=== PATIENT | male | born 1975 | race Caucasian/White ===

== ENCOUNTER 2019-11-14 08:38 | Outpatient (REF) | payer BC, SELFPAY ==
[2019-11-14 09:39] LABS: MANUAL DIFF FLAG NO
[2019-11-14 09:43] LABS: Basophils Absolute Auto 0.1 X10*3/uL (0.0-0.2); Basophils Percent Auto 1.1 % (0-2); Eosinophils Absolute Auto 0.2 X10*3/uL (0.0-0.4); Eosinophils Percent Auto 2.7 % (0-4); Hematocrit 44.2 % (42-52); Hemoglobin 15.1 g/dl (14.0-18.0); Imm Gran Abs Auto 0.01 X10*3/uL (0.00-0.03); Imm Gran Pct Auto 0.2 % (0.0-0.4); Lymphocytes Absolute Auto 1.7 X10*3/uL (1.2-4.9); Lymphocytes Percent Auto 30.8 % (20-40); Mean Corpuscular HGB Conc 34.2 g/dl (31.0-36.0); Mean Corpuscular Hemoglobin 33.8 pg (27.0-33.0); Mean Corpuscular Volume 98.9 fL (80-98); Mean Platelet Volume 11.1 fL (9.4-12.4); Monocytes Absolute Auto 0.5 X10*3/uL (0.1-1.2); Monocytes Percent Auto 8.1 % (2-11); Neutrophils Absolute Auto 3.2 X10*3/uL (2.0-8.3); Neutrophils Percent Auto 57.1 % (45-73); Platelet Count 211 X10*3/uL (160-400); Red Blood Count 4.47 X10*6/uL (4.60-5.80); Red Cell Distribution Width 11.5 % (11.0-16.0); White Blood Count 5.7 X10*3/uL (4.8-10.8)
[2019-11-14 11:22] LABS: Thyroid Stimulating Hormone 6.33 mIU/mL (0.32-4.0)
[2019-11-14 11:33] LABS: Alanine Aminotransferase 21 U/L (0-40); Albumin Level 4.6 g/dL (3.5-5.0); Alkaline Phosphatase 62 U/L (39-117); Aspartate Amino Transferase 22 U/L (5-37); Bilirubin Total 0.8 mg/dL (0.0-1.0); Blood Urea Nitrogen 14 mg/dL (9-16); Calcium 9.1 mg/dL (8.4-10.2); Cholesterol 171 mg/dL; Estimated Glomerular Filt Rate > 60; Glucose Fasting 98 mg/dL (60-99); HDL Cholesterol 50 mg/dL; LDL Cholesterol Calculated 98 mg/dl; Triglycerides 119 mg/dL
[2019-11-14 11:43] LABS: Anion Gap 11 (12-20); Carbon Dioxide 30 mmol/L (22-29); Chloride 103 mmol/L (96-108); Potassium 4.4 mmol/l (3.3-5.1); Sodium 140 mmol/L (135-145)
== END 2019-11-14 08:39 | disposition home or self-care (01) ==
LOC: HO.10HDL 08:38
PROVIDERS: PCP Internal Medicine; Visit Provider Internal Medicine
DX: E89.0 Postprocedural hypothyroidism (principal); I10 Essential (primary) hypertension; R00.1 Bradycardia, unspecified
CPT/HCPCS: 36415; 80053; 80061; 84443; 85025

== ENCOUNTER 2020-05-28 08:59 | Outpatient (REF) | payer BC, SELFPAY ==
[2020-05-28 10:19] LABS: Thyroid Stimulating Hormone 5.76 uIU/mL (0.32-4.0)
== END 2020-05-28 09:00 | disposition home or self-care (01) ==
LOC: HO.10HDL 08:59
PROVIDERS: Visit Provider Internal Medicine
DX: E89.0 Postprocedural hypothyroidism (principal)
CPT/HCPCS: 36415; 84443

== ENCOUNTER 2021-03-03 08:33 | Outpatient (REF) | payer BC, SELFPAY ==
[2021-03-03 10:35] LABS: MANUAL DIFF FLAG NO
[2021-03-03 10:45] LABS: Basophils Absolute Auto 0.1 X10*3/uL (0.0-0.2); Basophils Percent Auto 1.1 % (0-2); Eosinophils Absolute Auto 0.1 X10*3/uL (0.0-0.4); Eosinophils Percent Auto 2.1 % (0-4); Hematocrit 42.7 % (42.0-52.0); Hemoglobin 14.4 g/dl (14.0-18.0); Imm Gran Abs Auto 0.01 X10*3/uL (0.00-0.03); Imm Gran Pct Auto 0.2 % (0.0-0.4); Lymphocytes Absolute Auto 1.6 X10*3/uL (1.2-4.9); Lymphocytes Percent Auto 34.4 % (20-40); Mean Corpuscular HGB Conc 33.7 g/dl (31.0-36.0); Mean Corpuscular Hemoglobin 33.3 pg (27.0-33.0); Mean Corpuscular Volume 98.6 fL (80.0-98.0); Mean Platelet Volume 12.7 fL (9.4-12.4); Monocytes Absolute Auto 0.4 X10*3/uL (0.1-1.2); Monocytes Percent Auto 8.7 % (2-11); Neutrophils Absolute Auto 2.5 x10*3/uL (2.0-8.3); Neutrophils Percent Auto 53.5 % (45-73); Platelet Count 164 X10*3/uL (160-400); Red Blood Count 4.33 X10*6/uL (4.60-5.80); Red Cell Distribution Width 11.6 % (11.0-16.0); White Blood Count 4.7 X10*3/uL (4.8-10.8)
[2021-03-03 11:20] LABS: Alanine Aminotransferase 12 U/L (0-40); Albumin Level 4.3 g/dL (3.5-5.0); Alkaline Phosphatase 74 U/L (39-117); Anion Gap 12 (12-20); Aspartate Amino Transferase 16 U/L (5-37); Bilirubin Total 1.2 mg/dL (0.0-1.0); Blood Urea Nitrogen 15 mg/dL (9-16); Calcium 9.6 mg/dL (8.4-10.2); Carbon Dioxide 29 mmol/L (22-29); Chloride 105 mmol/L (96-108); Cholesterol 168 mg/dL; Estimated Glomerular Filt Rate > 60; Glucose Fasting 95 mg/dL (60-99); HDL Cholesterol 37 mg/dL; LDL Cholesterol Calculated 110 mg/dl; Potassium 4.4 mmol/L (3.3-5.1); Sodium 142 mmol/L (135-145); Triglycerides 109 mg/dL
[2021-03-03 11:30] LABS: Thyroid Stimulating Hormone 1.15 uIU/mL (0.32-4.0); Vitamin D 25-OH Total 34.7 ng/mL (>30)
== END 2021-03-03 08:34 | disposition home or self-care (01) ==
LOC: HO.10HDL 08:33
PROVIDERS: Visit Provider Internal Medicine
DX: Z00.00 Encounter for general adult medical examination without abnormal findings (principal); E89.0 Postprocedural hypothyroidism
CPT/HCPCS: 36415; 80053; 80061; 82306; 84443; 85025

== ENCOUNTER 2021-09-17 09:33 | Outpatient (REF) | payer BC, SELFPAY ==
[2021-09-17 10:56] LABS: Prostate Specific Antigen 0.46 ng/mL (<0.05-4.0); Thyroid Stimulating Hormone 5.43 uIU/mL (0.32-4.0)
== END 2021-09-17 09:34 | disposition home or self-care (01) ==
LOC: HO.LAB 09:33
PROVIDERS: PCP Internal Medicine; Visit Provider Internal Medicine
DX: Z00.00 Encounter for general adult medical examination without abnormal findings (principal); Z12.5 Encounter for screening for malignant neoplasm of prostate; E89.0 Postprocedural hypothyroidism; Z80.42 Family history of malignant neoplasm of prostate
CPT/HCPCS: 36415; 84153; 84443

== ENCOUNTER 2022-03-04 07:52 | Outpatient (REF) | payer OTHER, SELFPAY ==
[2022-03-04 08:34] LABS: MANUAL DIFF FLAG NO
[2022-03-04 09:19] LABS: Basophils Absolute Auto 0.1 X10*3/uL (0.0-0.2); Basophils Percent Auto 1.5 % (0-2); Eosinophils Absolute Auto 0.1 X10*3/uL (0.0-0.4); Eosinophils Percent Auto 1.3 % (0-4); Hematocrit 45.9 % (42.0-52.0); Hemoglobin 16.2 g/dl (14.0-18.0); Imm Gran Abs Auto 0.01 X10*3/uL (0.00-0.03); Imm Gran Pct Auto 0.2 % (0.0-0.4); Lymphocytes Absolute Auto 1.3 X10*3/uL (1.2-4.9); Lymphocytes Percent Auto 25.5 % (20-40); Mean Corpuscular HGB Conc 35.3 g/dl (31.0-36.0); Mean Corpuscular Hemoglobin 33.1 pg (27.0-33.0); Mean Corpuscular Volume 93.7 fL (80.0-98.0); Mean Platelet Volume 11.5 fL (9.4-12.4); Monocytes Absolute Auto 0.4 X10*3/uL (0.1-1.2); Monocytes Percent Auto 7.7 % (2-11); Neutrophils Absolute Auto 3.3 x10*3/uL (2.0-8.3); Neutrophils Percent Auto 63.8 % (45-73); Platelet Count 235 X10*3/uL (160-400); Red Cell Distribution Width 11.4 % (11.0-16.0); White Blood Count 5.2 X10*3/uL (4.8-10.8)
[2022-03-04 10:00] LABS: Alanine Aminotransferase 12 U/L (0-40); Albumin Level 4.8 g/dL (3.5-5.0); Alkaline Phosphatase 63 U/L (39-117); Anion Gap 18 (12-20); Aspartate Amino Transferase 19 U/L (5-37); Bilirubin Total 1.4 mg/dL (0.0-1.0); Blood Urea Nitrogen 14 mg/dL (9-16); Calcium 9.9 mg/dL (8.4-10.2); Carbon Dioxide 25 mmol/L (22-29); Chloride 99 mmol/L (96-108); Cholesterol 213 mg/dL; Estimated Glomerular Filt Rate > 60; Glucose Fasting 89 mg/dL (60-99); HDL Cholesterol 54 mg/dL; LDL Cholesterol Calculated 144 mg/dl; Potassium 4.5 mmol/L (3.3-5.1); Sodium 137 mmol/L (135-145); Total Protein 7.3 g/dL (6.5-8.0); Triglycerides 76 mg/dL
[2022-03-04 10:08] LABS: Thyroid Stimulating Hormone 2.55 uIU/mL (0.32-4.0)
== END 2022-03-04 07:53 | disposition home or self-care (01) ==
LOC: HO.LAB 07:52
PROVIDERS: PCP Internal Medicine; Visit Provider Internal Medicine
DX: Z00.00 Encounter for general adult medical examination without abnormal findings (principal); E89.0 Postprocedural hypothyroidism
CPT/HCPCS: 36415; 80053; 80061; 82306; 84443; 85025

== ENCOUNTER 2022-09-02 07:38 | Outpatient (REF) | payer OTHER, SELFPAY ==
[2022-09-02 09:03] LABS: Cholesterol 152 mg/dL; HDL Cholesterol 50 mg/dL; LDL Cholesterol Calculated 86 mg/dl; Triglycerides 80 mg/dL
== END 2022-09-02 07:39 | disposition home or self-care (01) ==
LOC: HO.LAB 07:38
PROVIDERS: PCP Internal Medicine; Visit Provider Internal Medicine
DX: Z00.01 Encounter for general adult medical examination with abnormal findings (principal); E89.0 Postprocedural hypothyroidism; E78.00 Pure hypercholesterolemia, unspecified
CPT/HCPCS: 36415; 80061

== ENCOUNTER 2023-06-09 07:27 | Outpatient (REF) | payer OTHER, SELFPAY ==
[2023-06-09 07:50] LABS: MANUAL DIFF FLAG NO
[2023-06-09 07:56] LABS: Basophils Absolute Auto 0.1 X10*3/uL (0.0-0.2); Basophils Percent Auto 1.2 % (0-2); Eosinophils Absolute Auto 0.1 X10*3/uL (0.0-0.4); Eosinophils Percent Auto 2.8 % (0-4); Hemoglobin 14.7 g/dl (14.0-18.0); Imm Gran Abs Auto 0.01 X10*3/uL (0.00-0.03); Imm Gran Pct Auto 0.2 % (0.0-0.4); Lymphocytes Absolute Auto 1.4 X10*3/uL (1.2-4.9); Lymphocytes Percent Auto 32.7 % (20-40); Mean Corpuscular Hemoglobin 33.6 pg (27.0-33.0); Mean Corpuscular Volume 96.1 fL (80.0-98.0); Mean Platelet Volume 10.4 fL (9.4-12.4); Monocytes Absolute Auto 0.4 X10*3/uL (0.1-1.2); Monocytes Percent Auto 8.7 % (2-11); Neutrophils Absolute Auto 2.3 x10*3/uL (2.0-8.3); Neutrophils Percent Auto 54.4 % (45-73); Platelet Count 204 X10*3/uL (160-400); Red Blood Count 4.37 X10*6/uL (4.60-5.80); Red Cell Distribution Width 11.9 % (11.0-16.0); White Blood Count 4.3 X10*3/uL (4.8-10.8)
[2023-06-09 08:27] LABS: Alanine Aminotransferase 27 U/L (0-40); Albumin Level 4.3 g/dL (3.5-5.0); Alkaline Phosphatase 61 U/L (39-117); Anion Gap 10 (12-20); Aspartate Amino Transferase 31 U/L (5-37); Blood Urea Nitrogen 12 mg/dL (9-16); Calcium 9.3 mg/dL (8.4-10.2); Carbon Dioxide 29 mmol/L (22-29); Chloride 104 mmol/L (96-108); Cholesterol 178 mg/dL (<200); Estimated Glomerular Filt Rate > 60; Glucose Fasting 113 mg/dL (60-99); HDL Cholesterol 51 mg/dL (>40); LDL Cholesterol Calculated 109 mg/dL (<100); Potassium 4.4 mmol/L (3.3-5.1); Sodium 139 mmol/L (135-145); Total Protein 6.9 g/dL (6.5-8.0); Triglycerides 92 mg/dL (<150)
[2023-06-09 08:41] LABS: PSA,Total (Free>4and<10) 0.53 ng/mL (0.00-4.00)
[2023-06-09 08:44] LABS: Thyroid Stimulating Hormone 2.56 uIU/mL (0.32-4.0); Vitamin D 25-OH Total 36.7 ng/mL (>30)
== END 2023-06-09 07:28 | disposition home or self-care (01) ==
LOC: HO.LAB 07:27
PROVIDERS: PCP Internal Medicine; Visit Provider Internal Medicine
DX: Z00.00 Encounter for general adult medical examination without abnormal findings (principal); I10 Essential (primary) hypertension; E89.0 Postprocedural hypothyroidism; E78.00 Pure hypercholesterolemia, unspecified; Z12.5 Encounter for screening for malignant neoplasm of prostate
CPT/HCPCS: 36415; 80053; 80061; 82306; 84153; 84443; 85025

== ENCOUNTER 2024-06-14 07:26 | Outpatient (REF) | payer OTHER, SELFPAY ==
[2024-06-14 08:02] LABS: MANUAL DIFF FLAG NO
[2024-06-14 08:22] LABS: Basophils Absolute Auto 0.1 X10*3/uL (0.0-0.2); Eosinophils Absolute Auto 0.1 X10*3/uL (0.0-0.4); Eosinophils Percent Auto 1.4 % (0-4); Hematocrit 43.8 % (42.0-52.0); Hemoglobin 15.3 g/dl (14.0-18.0); Imm Gran Abs Auto 0.02 X10*3/uL (0.00-0.03); Imm Gran Pct Auto 0.4 % (0.0-0.4); Lymphocytes Absolute Auto 1.5 X10*3/uL (1.2-4.9); Lymphocytes Percent Auto 30.2 % (20-40); Mean Corpuscular HGB Conc 34.9 g/dl (31.0-36.0); Mean Corpuscular Hemoglobin 33.6 pg (27.0-33.0); Mean Corpuscular Volume 96.1 fL (80.0-98.0); Mean Platelet Volume 10.9 fL (9.4-12.4); Monocytes Absolute Auto 0.3 X10*3/uL (0.1-1.2); Neutrophils Absolute Auto 2.9 x10*3/uL (2.0-8.3); Platelet Count 234 X10*3/uL (160-400); Red Blood Count 4.56 X10*6/uL (4.60-5.80); Red Cell Distribution Width 11.5 % (11.0-16.0); White Blood Count 4.9 X10*3/uL (4.8-10.8)
[2024-06-14 08:41] LABS: Estimated Average Glucose 100 mg/dL; Hemoglobin A1C 129.5745 umol/L; Hemoglobin A1c % 5.1 % (<6.0); Total Hemoglobin (HGBA1C) 4060.8509 umol/L
[2024-06-14 08:56] LABS: Alanine Aminotransferase 31 U/L (0-40); Albumin Level 4.3 g/dL (3.5-5.0); Alkaline Phosphatase 65 U/L (39-117); Anion Gap 13 (12-20); Aspartate Amino Transferase 35 U/L (5-37); Bilirubin Direct 0.3 mg/dL (0.0-0.5); Bilirubin Total 1.1 mg/dL (0.0-1.0); Blood Urea Nitrogen 19 mg/dL (9-16); C Reactive Protein < 0.04 mg/dL (< or = 0.50); Carbon Dioxide 28 mmol/L (22-29); Chloride 105 mmol/L (96-108); Cholesterol 200 mg/dL (<200); Estimated Glomerular Filt Rate > 60; Glucose Fasting 95 mg/dL (60-99); HDL Cholesterol 56 mg/dL (>40); LDL Cholesterol Calculated 129 mg/dL (<100); Magnesium 1.9 mg/dL (1.6-2.6); Potassium 4.1 mmol/L (3.3-5.1); Sodium 142 mmol/L (135-145); Total Protein 6.9 g/dL (6.5-8.0); Triglycerides 76 mg/dL (<150)
[2024-06-14 09:06] LABS: Erythrocyte Sedimentation Rate 2 MM/HR (0-15)
[2024-06-14 09:08] LABS: PSA,Total (Free>4and<10) 0.72 ng/mL (0.00-4.00)
[2024-06-14 09:22] LABS: Folate 13.5 ng/mL (> or = 4.0); Vitamin B12 497 pg/mL (200-900)
[2024-06-14 09:28] LABS: Vitamin D 25-OH Total 43.3 ng/mL (>30)
[2024-06-14 11:16] LABS: Free T4 (Free Thyroxine) 1.17 ng/dL (0.71-1.85)
== END 2024-06-14 07:27 | disposition home or self-care (01) ==
LOC: HO.LAB 07:26
PROVIDERS: PCP Internal Medicine; Visit Provider Physician Assistant Medical
DX: Z00.00 Encounter for general adult medical examination without abnormal findings (principal); Z12.5 Encounter for screening for malignant neoplasm of prostate; Z13.1 Encounter for screening for diabetes mellitus; Z13.6 Encounter for screening for cardiovascular disorders
CPT/HCPCS: 36415; 80053; 80061; 80076; 82248; 82306; 82607; 82746; 83036; 83735; 84153; 84439; 84443; 85025; 85652; 86140

== ENCOUNTER 2024-07-22 15:39 | Outpatient (AMB) | payer OTHER, SELFPAY ==
--- NOTE | 2024-07-22 15:41 | MHC.PC.OV ---
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 Welfare Required: No Accompanied by: Self / Same As Patient Allergies apremilast [From Otezla] Adverse Reaction (Unknown, Verified 07/22/24 16:21) Diarrhea Medication List - Last Reconciled 07/22/24 by Zenia Berg PA-C calcipotriene-betamethasone 0.005-0.064 % (Enstilar) 1 appl topical DAILY PRN levothyroxine 150 mcg PO DAILY Tobacco use date assessed: 07/22/24 Dental Screening Dental Screen Date: 07/22/24 Did you have a dental visit in the last 12 months?: Yes Did you have a dental problem in the last 6 months where you did not have access to dental care?: No Was dental information given to patient?: Patient has dentist HPI physical HPI Details The patient is a 49-year-old male presenting for an annual physical examination and review of blood work results. The patient has a long-standing history of hypothyroidism, currently taking levothyroxine, but recent TSH levels have reported as elevated at 6.10. He reports being symptomatically stable with his consistent medication regimen. The LDL cholesterol level has worsened, with a recorded total cholesterol of 200 mg/dL. There are no symptomatic cardiac complaints; however, he does have a previously noted heart murmur with mild aortic valve regurgitation last evaluated with an echocardiogram in 2018. The patient denies recent symptoms indicative of prostate health concerns and omits a history or symptoms suggestive of gastrointestinal malignancies, choosing to screen for colon health using Cologuard. Social History - Lives with and son. 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 - Reports past history of hypertension, with normal blood pressure following weight loss. - Denies alcohol consumption; no history of substance abuse. - Has a history of psoriasis, currently managed with topical Enstilar. [facility] Medical History (Updated 07/22/24 @ 16:34 by Zenia Berg PA-C) Colon cancer screening Annual physical exam Aortic valve regurgitation Hypercholesteremia Establishing care with new doctor, encounter for Psoriasis Hypothyroidism Graves disease Hyperlipidemia LDL goal <100 Hypothyroidism (acquired) Family History Father BP (high blood pressure) Prostate cancer Mother Hypothyroid BP (high blood pressure) Social History Housing: House Alcohol intake: current Alcohol intake frequency: does not drink Patient Tobacco Use Status: Former Tobacco user service: No Current occupational status: employed Cognitive needs: No Hearing needs: No Vision needs: Yes (rx glasses) Questionnaire PHQ-9 Over the last 2 weeks, how often have you been bothered by any of the following problems? 1. Little interest or pleasure in doing things: not at all 2. Feeling down, depressed, or hopeless: not at all 3. Trouble falling or staying asleep, or sleeping too much: not at all 4. Feeling tired or having little energy: not at all 5. Poor appetite or overeating: not at all 6. Feeling bad about yourself - or that you are a failure or have let yourself or your family down: not at all 7. Trouble concentrating on things, such as reading the newspaper or watching television: not at all 8. Moving or speaking so slowly that other people could have noticed. Or the opposite - being so fidgety or restless that you have been moving around a lot more than usual: not at all 9. Thoughts that you would be better off or of hurting yourself in some way: not at all Total score: 0 Depression Screening Interpretation: Negative Depression Screening Done: Yes 58407 - PHQ-9 Billing: Yes Source: Developed by Drs. Az Almanzar, Ellen Alvarado, Eriberto Duval and colleagues, with an educational hernando from [employer]. Thrive Questionnaire Date Thrive assessed: 07/22/24 I am a: Patient What is your living situation today?: I have a steady place to live Within the past 12 months, did the food you bought not last and you didn't have the money to get more?: Never true Within the past 12 months, did you worry whether your food would run out before you got money to buy more?: Never true Do you have trouble paying for medicines?: No Do you have trouble getting transportation to medical appointments?: No Do you have trouble paying your heating and electricity bill?: No Do you have trouble taking care of your child, family member or friend?: No Do you have trouble with day-to-day activities such as bathing, preparing meals, shopping, managing finances, etc.?: No Are you currently unemployed and looking for a job?: No Are you interested in more education?: No Please select the resources that you would like help with: None THRIVE Score: 0 AUDIT C Alcohol Use Questionnaire (AUDIT-C) 1. How often do you have a drink containing alcohol?: Never 3. How often do you have six or more drinks on one occasion?: Never Total Score: 0 Score Reviewed/Action Taken: No BREANNA-7 AMB Questionnaire BREANNA-7 Date BREANNA - 7 assessed: 07/22/24 Feeling nervous, anxious, or on edge: 0 = Not at all Not being able to stop or control worryin = Not at all Worrying too much about different things: 0 = Not at all Trouble relaxin = Not at all Being so restless that it is hard to sit still: 0 = Not at all Becoming easily annoyed or irritable: 0 = Not at all Feeling afraid as if something awful might happen: 0 = Not at all Total BREANNA-7 score (0-4 normal; 5-9 mild; 10-14 moderate; 15-21 severe): 0 Source: Developed by Drs. Az Almanzar, Ellen Alvarado, Eriberto Duval and colleagues, with an educational hernando from [employer]. BREANNA-7 Assessment Billing BREANNA-7 Assessment Tool: BREANNA-7 Assessment 60453 Review of Systems Const Details: - Gastrointestinal: Denies black/bloody stools, abdominal pain, unintentional weight gain/loss. - Cardiovascular: Denies chest pain, shortness of breath, palpitations. - Genitourinary: Denies urinary symptoms. - Musculoskeletal: Denies recent falls. - Dermatological: Reports history of psoriasis. - Endocrine: Denies symptoms of hypothyroidism exacerbation. - General: Reports good overall health and well-being. Physical exam (Primary Care) Vital Signs: Last Vital Signs Temp 97.9 F 07/22/24 15:44 Pulse 66 07/22/24 15:44 Resp 16 07/22/24 15:44 BP 122/70 07/22/24 15:44 Pulse Ox 98 07/22/24 15:44 Oxygen Delivery Method Room Air 07/22/24 15:44 Care Plan Goal for BP management: <140/90 at Goal BMI result Body Mass Index 27.1 BMI Assessment/Plan discussion: High BMI High, discussed plan: lifestyle, weight reduction, dietary, physical activity and alcohol moderation Tobacco/Smoking Status: Tobacco use Status Tobacco use date assessed 07/22/24 07/22/24 15:53 Patient Tobacco Use Status Former Tobacco user 07/22/24 15:53 PHQ-9: PHQ-9 Score PHQ-9: Total score 0 07/22/24 15:53 Depression Screening Interpretation: Negative Thrive Assessment: Date of Thrive Assessment Date Thrive assessed 07/22/24 07/22/24 15:53 Const Other: Appearance: Alert. Oriented X3. No acute distress. Head: Normal external exam. Normocephalic. Atraumatic. Eyes: Pupils are equal, round, and reactive to light. Extraocular movements intact. Conjunctiva and sclera normal. Eyelids normal. Ears: External auditory canal normal. Tympanic membranes normal. Throat: Pharynx normal. Uvula midline. Moist mucous membranes. Neck: Normal inspection. Neck supple. Full range of motion. No adenopathy. Thyroid Normal. No meningeal signs. No neck mass noted. Cardiovascular: Normal heart rate and rhythm. Heart sound normal. Murmur present. Pulses normal throughout. Respiratory: No respiratory distress. Painless inspiration. Breath sounds normal. No wheezes/rales/rhonchi noted. Chest nontender. No accessory muscle usage noted or decreased air movement noted. Abdomen: Soft and nontender. Bowel sounds normal in all 4 quadrants. No distention noted. No organomegaly noted. No visible injury noted. Back: No costovertebral angle tenderness. Full range of motion noted. Skin: Skin warm and dry. Normal skin color. Normal skin turgor. No rashes/lesions/lacerations noted. Extremities: No lower extremity edema. Extremities exhibit normal range of motion. Extremities nontender. Neuro: Oriented X 3. No motor deficit. No sensory deficit. Reflexes normal. Results Reviewed Results Reviewed: - Labs: - TSH elevated at 6.10. - Total cholesterol at 200 mg/dL. - Hemoglobin A1c at 5.1%. - PSA level normal. - Red blood cell count slightly low at 4.56. - Total bilirubin intermittently elevated at 1.1. - Diagnostics: - Heart murmur with echocardiogram in 2018 showing mild aortic valve regurgitation. Coding Level of Care Code New Pt Level 4 (55652) New Pt Prev Care 40-64y(39951) Diagnoses Establishing care with new doctor, encounter for Z76.89 Annual physical exam Z00.00 Psoriasis L40.9 Hypothyroidism E03.9 Graves disease E05.00 Hyperlipidemia LDL goal <100 E78.5 Hypercholesteremia E78.00 Aortic valve regurgitation I35.1 Colon cancer screening Z12.11 Additional Codes PHQ-9 - 62560 - PHQ-9 Billing: Yes ([id number]) BREANNA-7 Assessment Billing - BREANNA-7 Assessment Tool: BREANNA-7 Assessment 42235 ([id number]) Assessment & Plan Assessment & Plan (1) Establishing care with new doctor, encounter for: Code(s): Z76.89 - Persons encountering health services in other specified circumstances Category: Medical (2) Annual physical exam: Code(s): Z00.00 - Encounter for general adult medical examination without abnormal findings Category: Medical (3) Psoriasis: Code(s): L40.9 - Psoriasis, unspecified Category: Medical Plan: Continue Enstilar as prescribed. Follow-up with employment and claims aide Dr. Aneesh Hankins as necessary for skin care management. Condition is chronic and stable will continue to monitor. (4) Hypothyroidism: Code(s): E03.9 - Hypothyroidism, unspecified Category: Medical Plan: Repeat thyroid function test to verify TSH levels. Monitor symptoms and continue medication adherence. Condition is chronic and stable continue to monitor. (5) Graves disease: Comment: s/p ROSENBERG treatment Code(s): E05.00 - Thyrotoxicosis with diffuse goiter without thyrotoxic crisis or storm Category: Medical Plan: Repeat thyroid function test to verify TSH levels. Monitor symptoms and continue medication adherence. Condition is chronic and stable continue to monitor. (6) Hyperlipidemia LDL goal <100: Code(s): E78.5 - Hyperlipidemia, unspecified Category: Medical Plan: Continue dietary modifications and exercise regimen. Consider lipid panel follow-up and potential initiation of statins if needed. Condition is chronic and stable continue to monitor. (7) Hypercholesteremia: Code(s): E78.00 - Pure hypercholesterolemia, unspecified Category: Medical Plan: Continue dietary modifications and exercise regimen. Consider lipid panel follow-up and potential initiation of statins if needed. Condition is chronic and stable continue to monitor. (8) Aortic valve regurgitation: Code(s): I35.1 - Nonrheumatic aortic (valve) insufficiency Category: Medical Plan: Schedule repeat echocardiogram to assess mild regurgitation status. Monitor for new or worsening cardiac symptoms. Condition is chronic and stable continue to monitor. (9) Colon cancer screening: Code(s): Z12.11 - Encounter for screening for malignant neoplasm of colon Category: Medical Plan: Provide Cologuard for screening; explain test procedure and follow-up actions if positive. Plan Plan Patient was informed and verbally consented to the use of an ambient scribe for clinic note documentation during this visit. 1. Hypothyroidism Repeat thyroid function test to verify TSH levels. Monitor symptoms and continue medication adherence. 2. Hyperlipidemia Continue dietary modifications and exercise regimen. Consider lipid panel follow-up and potential initiation of statins if needed. 3. Psoriasis Continue Enstilar as prescribed. Follow-up with employment and claims aide Dr. Aneesh Hankins as necessary for skin care management. 4. Aortic Valve Regurgitation Schedule repeat echocardiogram to assess mild regurgitation status. Monitor for new or worsening cardiac symptoms. 5. Colon Cancer Screening Provide Cologuard for screening; explain test procedure and follow-up actions if positive. I discussed with the patient the management of his identified health issues, including hypothyroidism, hyperlipidemia, psoriasis, aortic valve regurgitation, and the importance of colon cancer screening. We reviewed the utility of repeating thyroid function tests to determine the current state of hypothyroidism without pharmacotherapy changes. I emphasized dietary and lifestyle modifications to manage hyperlipidemia, considering the potential need for statins. We addressed the patient's dermatological care plan, including the use of Enstilar for psoriasis and coordination with his employment and claims aide. Concerning the cardiac findings, I recommended pursuing a repeat echocardiogram to evaluate the longstanding murmur and mild regurgitation to ensure there are no changes in his cardiac status. I explained the Cologuard procedure as a preliminary non-invasive colorectal cancer screening option, emphasizing the importance of follow-up diagnostic colonoscopy if results suggested further investigation. We agreed on repeating assessments and maintaining regular check-ups to support his overall health. Orders: Orders TSH reflex Free T4 Today Z00.00 - Encounter for general adult medical examination without abnormal findings CA echo transthoracic complete Today I35.1 - Nonrheumatic aortic (valve) insufficiency Referrals Cologuard Test Z12.11 - Encounter for screening for malignant neoplasm of colon, Z12.12 - Encounter for screening for malignant neoplasm of rectum Patient Instructions: - Repeat thyroid function test; no need to fast. - Maintain diet and exercise routine to manage cholesterol. - Use Enstilar cream as directed, and follow up with Dr. Aneesh Hankins for ongoing psoriasis care. - Await Cologuard test delivery; perform as instructed and return for results assessment. - Schedule an echocardiogram to reassess heart status. - Contact office for any concerning symptom development.
[2024-07-22 15:44] VITALS: BP 122/70; PULSE 66; RESP 16; TEMP 36.6; O2SAT 98; BMI 27.1
== END 2024-07-22 16:17 | disposition home or self-care (01) ==
LOC: HO.HMCSH 15:39
PROVIDERS: PCP Internal Medicine; Visit Provider Physician Assistant Medical
DX: Z00.00 Encounter for general adult medical examination without abnormal findings (principal); E78.5 Hyperlipidemia, unspecified; Z76.89 Persons encountering health services in other specified circumstances; L40.9 Psoriasis, unspecified; E03.9 Hypothyroidism, unspecified; E05.00 Thyrotoxicosis with diffuse goiter without thyrotoxic crisis or storm; E78.00 Pure hypercholesterolemia, unspecified; I35.1 Nonrheumatic aortic (valve) insufficiency; Z12.11 Encounter for screening for malignant neoplasm of colon

== ENCOUNTER → 2024-07-22 15:39 | Outpatient (BNVA) | payer OTHER, SELFPAY | PROVIDERS: PCP Internal Medicine; Visit Provider Physician Assistant Medical | DX: Z00.00 Encounter for general adult medical examination without abnormal findings (principal); Z76.89 Persons encountering health services in other specified circumstances; L40.9 Psoriasis, unspecified; E03.9 Hypothyroidism, unspecified; E05.00 Thyrotoxicosis with diffuse goiter without thyrotoxic crisis or storm; E78.00 Pure hypercholesterolemia, unspecified; I35.1 Nonrheumatic aortic (valve) insufficiency; Z13.31 Encounter for screening for depression; Z13.30 Encounter for screening examination for mental health and behavioral disorders, unspecified | CPT/HCPCS: 96127 ==

== ENCOUNTER 2024-07-29 14:56 | Outpatient (REF) | payer OTHER, SELFPAY ==
[2024-07-29 16:23] LABS: TSH reflex Free T4 5.32 uIU/mL (0.32-4.0)
[2024-07-29 18:05] LABS: Free T4 (Free Thyroxine) 1.08 ng/dL (0.71-1.85)
== END 2024-07-29 14:57 | disposition home or self-care (01) ==
LOC: HO.LAB 14:56
PROVIDERS: PCP Physician Assistant Medical; Visit Provider Physician Assistant Medical
DX: Z00.00 Encounter for general adult medical examination without abnormal findings (principal)
CPT/HCPCS: 36415; 84439; 84443

== ENCOUNTER → 2024-09-24 08:48 | Outpatient (REF) | payer OTHER, SELFPAY ==
--- NOTE | 2024-09-24 08:51 | CA_ITS ---
Transthoracic Echocardiogram Patient (Last, First, Middle): Vijay Morse E Gender: Male Date of : 1975 Age: 49 Procedure Date: 09/24/2024 Procedure Type: Transthoracic Echocardiogram Location: OP Height: 180.34 cm Weight: 88.91 kg BSA: 2.09 m2 Heart Rate: bpm BP: 122 / 70 mmHg Hod Carrier: SOSA Referring MD: Zenia Berg PA-C Plastic Cutter: Mike Covington MD Symptoms: I35.1 - Nonrheumatic aortic (valve) insufficiency Study Quality: Adequate ECG Rhythm: Sinus Conclusions: - 1. Normal LV ejection fraction of 65-70% with grade 1 diastolic dysfunction 2. Mildly dilated left atrium 3. Mild aortic regurgitation 4. Normal RV systolic pressure 5. Mildly dilated ascending aorta at 4.1 cm 6. No gross pericardial effusion Findings Left Ventricle Normal left ventricular size, thickness, and systolic function. The visually estimated ejection fraction is between 65-70%. Spectral Doppler is indicative of an impaired relaxation filling pattern. E/E prime ratio is <8, consistent with normal filling pressures. Evidence suggests grade I (mild) diastolic dysfunction. Right Ventricle Normal right ventricular cavity size and systolic function. Atria The left atrium is mildly dilated. There is no evidence of interatrial shunt. The right atrium is normal in size. Aortic Valve Normal aortic valve structure and function. There is no aortic valve stenosis. There is mild aortic valve regurgitation. Mitral Valve Normal mitral valve structure and function. There is trace mitral valve regurgitation. There is no mitral valve stenosis. Pulmonic Valve The pulmonic valve is likely normal. Tricuspid Valve Normal tricuspid valve structure. There is trace tricuspid valve regurgitation. The right ventricular systolic pressure is normal. Mildly elevated right atrial pressure. There is no evidence of pulmonary hypertension. Great Vessels The pulmonary artery was not well visualized. There is mild dilatation of the ascending aorta measuring 4.10 cm. Venous The inferior vena cava is normal in size and collapses greater than 50% with inspiration. Pericardium/Pleural There is no evidence of pericardial effusion. Prior Study Comparison Changes noted compared to prior study dated: 11/21/2017. ascending aorta is mildly dilated Measurements 2D Linear Measurements IVSd: 1.03 0.6-0.9/0.6-1.0 cm LVIDd: 5.06 3.9-5.3/4.2-5.9 cm LVIDd Index: 2.42 2.4-3.2/2.2-3.1 cm/m2 LVIDs: 3.33 2.0-3.6 cm LVPWd: 0.74 0.7-1.1 cm LA Diam: 4.10 2.7-3.8/3.0-4.0 cm LAIDs Index: 1.96 1.5-2.3 cm/m2 LV Mass: 196.77 67-162/88-224 g LV Mass Index: 94.15 43-95/49-115 g/m2 LVOT Diam: 2.30 3.0+(-)1.3 cm 2D Systolic Function EF 4C: 65.50 >55% EF 2C: 67.70 >55% EF BiP: 67.00 >55% Mitral Valve MV Pk E: 0.72 MV PK A: 0.73 MV Decel Time: 266.00 E/A: 1.00 E'Lateral: 14.40 E'Medial: 9.36 E/E' Med: 7.70 E/E' Lat: 5.00 PHT: 78.00 MVA PHT: 2.82 Decel [place]: 2.72 Aortic Valve AoV Pk Haim: 1.71 AoV Mn Haim: 1.20 AoV VTI: 0.46 AoV Pk Grad: 12.00 Aov Mn Grad: 7.00 JANE Cont.VTI: 3.50 AI Pk [place]: 3.10 AI [place]: 1.15 LVOT LVOT Pk [place]aim: 1.59 LVOT Mn [place]aim: 1.05 LVOT VTI: 0.39 LVOT Pk Grad: 10.00 LVOT Mn Grad: 5.00 LVOT Diam: 2.30 LVOT Area: 4.15 Diastolic Function MV Pk E: 0.72 MV Pk A: 0.73 E/A: 1.00 E'Medial: 9.36 E/E' Med: 7.70 E' Laterial: 14.40 E/E' Lat: 5.00 Right Ventricle TAPSE (mm): 21.70 TVS' Haim: 13.60 Tricuspid Valve TR Pk Haim: 1.91 TR Pk Grad: 15.00 RA Press: 8.00 RVSP: 23.00 Great Vessels Aorta Sinus of Valsalva: 4.05 2.0-3.[address] [place]: 3.18 1.7-3.4 cm Ao Asc: 4.10 2.1-3.4 cm Ao Arch: 3.40 Updated in Other Vendor System with Status of Final Mike Covington MD electronically signed on 09/24/2024 1:33:25 PM with status of Final
== END ==
LOC: HO.CARD 08:48
PROVIDERS: PCP Physician Assistant Medical; Visit Provider Physician Assistant Medical
DX: I35.1 Nonrheumatic aortic (valve) insufficiency (principal)
CPT/HCPCS: 93306

== ENCOUNTER → 2024-09-24 08:51 | Outpatient (BNV) | payer OTHER, SELFPAY | PROVIDERS: PCP Physician Assistant Medical; Visit Provider Internal Medicine Cardiovascular Disease | DX: I35.1 Nonrheumatic aortic (valve) insufficiency (principal) | CPT/HCPCS: 93306 ==

== ENCOUNTER 2024-10-01 12:01 | Outpatient (REF) | payer OTHER, SELFPAY ==
[2024-10-01 14:07] LABS: Free T4 (Free Thyroxine) 1.19 ng/dL (0.71-1.85)
== END 2024-10-01 12:02 | disposition home or self-care (01) ==
LOC: HO.LAB 12:01
PROVIDERS: PCP Physician Assistant Medical; Visit Provider Physician Assistant Medical
DX: Z00.00 Encounter for general adult medical examination without abnormal findings (principal)
CPT/HCPCS: 36415; 84439; 84443

== ENCOUNTER 2024-11-19 12:38 | Outpatient (REF) | payer OTHER, SELFPAY | END 2024-11-19 12:39 | disposition home or self-care (01) | LOC: HO.LAB 12:38 | PROVIDERS: PCP Physician Assistant Medical; Visit Provider Physician Assistant Medical | DX: Z00.00 Encounter for general adult medical examination without abnormal findings (principal); Z13.29 Encounter for screening for other suspected endocrine disorder | CPT/HCPCS: 36415; 84443 ==

== ENCOUNTER 2025-02-11 09:56 | Outpatient (AMB) | payer OTHER, SELFPAY ==
[2025-02-11 09:59] VITALS: BP 150/90; PULSE 51; BMI 27.8
--- NOTE | 2025-02-11 09:59 | A.OFFVIS_ITS ---
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 Patient had echocardiogram in 2018 which had shown mi aortic regurgitation at that time. This was a follow-up echocardiogram. He is a runner and says this morning he ran 5 miles in 40 minutes and had no symptoms. Denies any exertional chest pain or shortness of breath. In the past he used to be hypertensive and was started on medication and few years ago decide to change his lifestyle and started running and gave up alcohol. After that he started having symptoms of lightheadedness and low blood pressure in his blood pressure medications were stopped. He does not regularly monitor blood pressure at home but says at home blood pressure can run in systolic 130-140. When he comes in today his blood pressure is elevated at 150 systolic over 90 diastolic. Patient has no symptoms related to it. He does have prior history of hypothyroidism currently on thyroid replacement therapy. He denies any symptoms of shortness of breath, orthopnea, PND, leg edema. No prolonged palpitation irregular heartbeat. He has borderline mild hyperlipidemia, currently not in treatment. No significant strong family history of premature coronary artery disease. He comes for further evaluation and treatment if necessary for his underlying a scending aortic enlargement. [facility] Medical History Ascending aorta dilatation Mild aortic regurgitation Colon cancer screening Annual physical exam Hypercholesteremia Establishing care with new doctor, encounter for Psoriasis Hypothyroidism Graves disease Hypothyroidism (acquired) Family History Father BP (high blood pressure) Prostate cancer Mother Hypothyroid BP (high blood pressure) Social History Housing: House Alcohol intake: never Patient Tobacco Use Status: Former Tobacco user service: No Current occupational status: employed Cognitive needs: No Hearing needs: No Vision needs: Yes (rx glasses) Review of Systems Const Denies chills, Denies fatigue, Denies fever(s), Denies frequent falls, Denies weakness, Denies weight gain and Denies weight loss ENT Denies dizziness Card Denies chest pain, Denies leg edema, Denies lightheadedness, Denies palpitations, Denies dyspnea, Denies dyspnea on exertion and Denies orthopnea Resp Denies cough, Denies dyspnea and Denies dyspnea on exertion GI Denies bloating and Denies change in bowel habits Musc Denies muscle weakness, Denies numbness and Denies tingling Neuro Denies dizziness, Denies frequent falls, Denies numbness, Denies tingling and Denies weakness Endo Denies fatigue and Denies palpitations Physical Exam Vital Signs: Last Vital Signs Pulse 51 02/11/25 09:59 BP 150/90 H 02/11/25 09:59 BMI result Body Mass Index 27.8 Const General: cooperative, healthy appearing, comfortable, no acute distress, well developed, alert, awake and Physically active Nutritional Appearance: well nourished Orientation/consciousness: patient oriented x3 Limitations: no limitations HEENT Head: Yes normocephalic and Yes atraumatic Neck Neck: Yes trachea midline, Yes supple and Yes no JVD Resp Effort & Inspection: normal respiratory effort Auscultation: clear to auscultation bilaterally Cardio Jugular venous distension: no JVD Rate: regular rate Rhythm: regular rhythm Heart sounds: S1 normal heart sound present, S2 normal heart sound present, no click, no gallops, no murmurs and no rubs GI Auscultation: normal bowel sounds Skin General skin exam: no rashes or lesions noted Neuro General: patient oriented x3 and no focal motor deficits Extrem General: Yes no clubbing, cyanosis or edema Psych Appearance: grossly normal Office Procedures EKG Details: EKGs shows normal sinus rhythm with moderate voltage criteria for LVH otherwise no significant abnormalities. [id number], Complete Assessment & Plan Assessment & Plan (1) Ascending aorta dilatation: Code(s): I77.810 - Thoracic aortic ectasia Category: Medical Plan: Mildly enlarged thoracic aorta in this middle-aged man in his most likely related to elevated blood pressure. Given his elevated blood pressure readings at home although borderline and elevated blood pressure reading today he most likely has hypertension, see below. We discussed about management of ascending aortic enlargement. Will require annual follow up with echocardiogram. At current size does not require any interventions. Symptoms associated with a acute aortic syndrome were discussed. Advised to avoid sudden strenuous isometric exercise. I recommend him to be treated for his elevated blood pressure reading although he wants to defer at this point in time. (2) Elevated blood pressure reading: Code(s): R03.0 - Elevated blood-pressure reading, without diagnosis of hypertension Category: Medical Plan: Elevated blood pressure reading on today's exam with prior history of hypertension in this middle-aged man in his usually suggestive of hypertensive heart disease with the associated end-organ dilatation of ascending aorta as an indication for treatment. However he wants to monitor his blood pressure at home. Discussed to monitor blood pressure with the next 2 weeks and will follow up with the nurse visit in 2 weeks with the data points and target treatment accordingly. Given his risk factors would suggest a coronary calcium score to further guide treatment from atherosclerotic perspective. He is agreeable to that. Follow up in the clinic otherwise in 1 year's time, sooner PRN. Thank you for allowing me to partake in his care Orders: Orders CT Coronary Calcium Score 1 Week E78.5 - Hyperlipidemia, unspecified Coding Level of Care Code New Pt Level 4 (08654) Diagnoses Ascending aorta dilatation I77.810 Elevated blood pressure reading R03.0 CPT Codes EKG - CPT: 00140-[id number], Complete ([id number])
== END 2025-02-11 10:21 | disposition home or self-care (01) ==
LOC: HO.HCS 09:56
PROVIDERS: PCP Physician Assistant Medical; Visit Provider Internal Medicine Cardiovascular Disease
DX: I77.810 Thoracic aortic ectasia (principal); R03.0 Elevated blood-pressure reading, without diagnosis of hypertension
CPT/HCPCS: 93010; 99214

== ENCOUNTER → 2025-02-11 09:56 | Outpatient (BNVA) | payer OTHER, SELFPAY | PROVIDERS: PCP Physician Assistant Medical; Visit Provider Internal Medicine Cardiovascular Disease | DX: I77.810 Thoracic aortic ectasia (principal); R03.0 Elevated blood-pressure reading, without diagnosis of hypertension | CPT/HCPCS: 93005 ==